=== PATIENT | male | born 1985 | race African-American/Black ===

== ENCOUNTER 2020-04-08 01:03 | Emergency (ER) | payer BC ==
[~2020-04-08] VITALS: Ht 180.3 cm; Wt 111.1 kg
--- NOTE | 2020-04-08 01:30 | NUR ---
ED Nurse Note: Pt c/o left ear pain after accidentally pushing q-tip too far into ear. Pt is AAO x4 and ambulated into ED without difficulty.
--- NOTE | 2020-04-08 01:43 | Emergency Room Report ---
History of Present Illness General Chief Complaint: Earache Source: Patient Present Illness HPI This is a 34-year-old male with no past medical history who presents with chief complaint of injury to his right ear. He has had a shower and was cleaning his ear with a Q-tip when his called him to get something. He reached up and accidentally slipped and jammed the Q-tip in his ear. There was little bit of bleeding and dizziness. He is fine now. No problem with hearing. Came in to be checked out. No other complaint. Allergies: Coded Allergies: No Known Allergies (Unverified , 04/08/20) COVID-19 Screening Contact w/high risk pt: No Experienced COVID-19 symptoms?: No COVID-19 Testing performed [employer]ER: Yes COVID-19 Screening: Negative COVID-19 COVID-19 Testing Source: nasal Patient History Past Medical History: see triage record, old chart reviewed Past Surgical History: none Pertinent Family History: none Social History: Denies: smoking Immunizations: other Reviewed Nursing Documentation: PMH: Agreed; PSxH: Agreed Nursing Documentation-PMH Past Medical History: No Stated History Review of Systems Eye: Denies: eye pain, blurred vision ENT: Reports: ear pain; Denies: nose congestion, throat swelling Respiratory: Denies: cough, shortness of breath Cardiovascular: Denies: chest pain, palpitations Gastrointestinal: Denies: abdominal pain, diarrhea, nausea, vomiting Musculoskeletal: Denies: back pain, joint pain Skin: Denies: rash Neurological: Denies: headache, numbness Endocrine: Denies: increased thirst, increased urine Hematologic/Lymphatic: Denies: easy bruising All Other Systems: negative except mentioned in HPI Physical Exam Vital Signs Date Time Temp Pulse Resp B/P (MAP) Pulse Ox O2 Delivery O2 Flow Rate FiO2 04/08/20 01:20 98.1 72 16 130/82 (98) 98 Room Air Vitals normal Sp02 EP Interpretation: reviewed, normal General Appearance: well appearing, no apparent distress, alert Head: normocephalic, atraumatic Eyes: bilateral eye PERRL, bilateral eye EOMI ENT: hearing grossly normal, normal pharynx, other - Right ear canal: Near the entrance of the canal there is a small abrasion inferiorly. There is also one superiorly closer to the eardrum. No active bleeding. No perforation. Neck: full range of motion, supple, no meningismus Respiratory: chest non-tender, lungs clear, normal breath sounds Cardiovascular #1: regular rate, rhythm, no murmur Gastrointestinal: normal bowel sounds, non tender, no mass, no organomegaly, no bruit, non-distended Musculoskeletal: back normal, normal range of motion, gait/station normal Psychiatric: mood/affect normal Medical Decision Making Diagnostic Impression: Primary Impression: Ear canal abrasion Qualified Codes: S00.411A - Abrasion of right ear, initial encounter ER Course This patient presents with soft tissue injury to the ear canal. No perforation. Last Vital Signs Date Time Temp Pulse Resp B/P (MAP) Pulse Ox O2 Delivery O2 Flow Rate FiO2 04/08/20 01:20 98.1 72 16 130/82 (98) 98 Room Air Status: unchanged Disposition: HOME, SELF-CARE Condition: Stable Additional Instructions: follow up with your doctor in 7 days. Do not do anything in your ear. Return if worse. Alessandro Holguin MD Apr 08, 2020 01:43
--- NOTE | 2020-04-08 01:45 | NUR ---
ED Nurse Note: Pt cleared by health care Provider for discharge. DC instructions was given and explained to pt and verbalized understanding of teachings. ID band removed. Pt is AAO x4, ambulatory and left with all personal belongings.
[2020-04-08 01:57] VITALS: BP 130/82
== END 2020-04-08 01:45 | disposition home or self-care (01) ==
LOC: EMR 01:30
DX: S00.411A Abrasion of right ear, initial encounter (principal); W01.198A Fall on same level from slipping, tripping and stumbling with subsequent striking against other object, initial encounter; Y93.E1 Activity, personal bathing and showering; Y92.012 Bathroom of single-family (private) house as the place of occurrence of the external cause
CPT/HCPCS: 99281